=== PATIENT | female | born 1985 | race Caucasian/White ===

== ENCOUNTER → 2020-12-07 | Outpatient (CLI) | payer OTHER ==
--- NOTE | 2020-12-07 12:05 | EKG ---
[place] [address] ELECTROCARDIOGRAM REPORT Name: ANDREW WYATT Room: [facility]#: [id number] Admission: 12/07/20 Attend Phys: Physician not on s Discharge: Date of : 89 Date of Service: 12/07/2042 Report #: [id number] THIS REPORT FOR: //name// [facility] Test Date: 2020-12-07 Test Time: 08:42:09 Pat Name: ANDREW WYATT Department: Room: Gender: Safety Manager: : 1985 Requested By: Physician staff Order Number: [id number] Christa MD: Ildefonos Lara Measurements Intervals [place] Rate: 47 P: 48 RI: 146 QRS: 82 QRSD: 99 T: 63 QT: 461 QTc: 408 Interpretive Statements Sinus bradycardia Low voltage, precordial leads No previous ECG available for comparison Electronically Signed On 12-07-2020 12:04:57 CDT by Ildefonso Lara [email or web address] <ELECTRONICALLY SIGNED> By: Ildefonso Lara MD, [facility] 12/07/20 1204 1 1 Ildefonso Lara MD, FAC /EPI
== END ==
LOC: M.CRD 07:54
DX: Z01.818 Encounter for other preprocedural examination (principal); R00.1 Bradycardia, unspecified

== ENCOUNTER → 2020-12-14 | Outpatient (CLI) | payer OTHER ==
--- NOTE | 2020-12-14 17:01 | EKG ---
[place] [address] ELECTROCARDIOGRAM REPORT Name: ANDREW WYATT Room: [facility]#: [id number] Admission: 12/14/20 Attend Phys: Physician not on s Discharge: Date of : 89 Date of Service: 12/14/20 1625 Report #: [id number] THIS REPORT FOR: //name// [facility] Test Date: 2020-12-14 Test Time: 16:25:36 Pat Name: ANDREW WYATT Department: Room: Gender: Car Repairer Apprentice: : 1985 Requested By: Physician staff Order Number: [id number] Christa MD: Ildefonso Lara Measurements Intervals [place] Rate: 59 P: 57 [place]: 142 QRS: 81 QRSD: 106 T: 67 QT: 413 QTc: 410 Interpretive Statements Sinus rhythm RSR' in V1 or V2, right VCD or RVH Compared to ECG 12/07/2020 08:42:09 Right ventricular hypertrophy now present RSR' in V1 or V2 now present Sinus bradycardia no longer present Electronically Signed On 12-14-2020 17:01:41 CDT by Ildefonso Lara [email or web address] <ELECTRONICALLY SIGNED> By: Ildefonso Lara MD, FACC 12/14/20 1701 1625 1625 Ildefonso Lara MD, FAC /EPI
== END ==
LOC: M.CRD 16:07
DX: Z01.818 Encounter for other preprocedural examination (principal)